=== PATIENT | male | born 1960 | race Two or more races ===

== ENCOUNTER → 2017-03-25 11:16 | Outpatient (CLI) | payer OTHER | END | disposition home or self-care (01) | LOC: LAB 11:16 | DX: J06.9 Acute upper respiratory infection, unspecified (principal); D64.89 Other specified anemias; I10 Essential (primary) hypertension; J11.1 Influenza due to unidentified influenza virus with other respiratory manifestations; N39.9 Disorder of urinary system, unspecified; E78.2 Mixed hyperlipidemia; R97.20 Elevated prostate specific antigen [PSA] ==